=== PATIENT | male | born 1965 | race Two or more races ===

== ENCOUNTER 2020-06-12 20:50 | Emergency (ER) | payer OTHER ==
[~2020-06-12] VITALS: Ht 162.6 cm; Wt 72.6 kg
[2020-06-13] MEDS ORDERED: KETO10TA2 PO (02:41)
[2020-06-13] MEDS ORDERED: TAMS0.4C PO (02:41)
== END 2020-06-13 02:46 | disposition home or self-care (01) ==
LOC: ER 20:50
DX: N20.1 Calculus of ureter (principal)

== ENCOUNTER 2020-06-19 05:50 | Day surgery (SDC) | payer OTHER ==
[~2020-06-19 05:50] MED LIST: KETO10TA2 PO; TAMS0.4C PO
== END 2020-06-19 13:15 | disposition home or self-care (01) ==
LOC: CIR.AMB 05:50
PROVIDERS: ATTEND Urology
DX: N20.1 Calculus of ureter (principal); Z20.828 Contact with and (suspected) exposure to other viral communicable diseases